=== PATIENT | male | born 1980 | race Caucasian/White ===

== ENCOUNTER 2018-06-15 11:59 | Emergency (ER) | payer BC ==
--- NOTE | 2018-06-15 13:04 | EDM.PDOC ---
ED HPI GENERAL MEDICAL PROBLEM - General Chief Complaint: Laceration Stated Complaint: FELL AND SPLIT LIP Time Seen by Provider: 06/15/18 12:30 Source of Information: Reports: Patient History Limitations: Reports: No Limitations - History of Present Illness INITIAL COMMENTS - FREE TEXT/NARRATIVE: Patient comes in the emergency department with complaint of a lip laceration. Patient states she was walking up the stairs and fell forward causing his tooth to go through the front of his lip on the right lateral aspect. He states that he was able to control the bleeding immediately but did see that it needed medical attention. Pt denies any head injuries including headache, dizziness, lightheadedness, blurred vision, chest pain, shortness of breath, or abnormal swelling. Patient denies losing any teeth or having any loose teeth from the incident. He states that the pain is localized to the right side of his lip. States it's worse when he is talking feels better when he is resting. He denies taking any pain medication and does not want anything for the discomfort. Onset: Sudden Quality: Reports: Throbbing Severity: Mild Improves with: Reports: None Worsens with: Reports: None Associated Symptoms: Reports: No Other Symptoms - Related Data Allergies Allergy/AdvReac Type Severity Reaction Status Date / Time latex Allergy Rash Verified 05/19/17 08:33 Past Medical History HEENT History: Reports: Otitis Media ED ROS GENERAL - Review of Systems Review Of Systems: See Below Constitutional: Reports: No Symptoms HEENT: Reports: No Symptoms Respiratory: Reports: No Symptoms Cardiovascular: Reports: No Symptoms Endocrine: Reports: No Symptoms GI/Abdominal: Reports: No Symptoms : Reports: No Symptoms Musculoskeletal: Reports: No Symptoms Skin: Reports: No Symptoms Neurological: Reports: No Symptoms Psychiatric: Reports: No Symptoms Hematologic/Lymphatic: Reports: No Symptoms Immunologic: Reports: No Symptoms ED EXAM, SKIN/RASH Exam: See Below Exam Limited By: No Limitations General Appearance: Alert, WD/WN, No Apparent Distress Throat/Mouth: Other (laceration to right upper lip. bleeding minimal. Deep tissue involvment ) Head: Atraumatic, Other Neck: Normal Inspection, Supple, Non-Tender Respiratory/Chest: No Respiratory Distress, No Accessory Muscle Use Back Exam: Normal Inspection, Full Range of Motion Extremities: Normal Inspection, Normal Range of Motion Neurological: Alert, Oriented Psychiatric: Normal Affect, Normal Mood Skin: Warm, Dry, Intact, Normal Color Location, Skin: Face Characteristics: Linear Associated features: Tenderness, Swelling ED SKIN PROCEDURES - Laceration/Wound Repair Right Upper Lateral Mouth Lac/Wound length In cm: 4 Appearance: Irregular, Clean Anesthetic Type: Local Local Anesthesia - Lidocaine (Xylocaine): 1% Plain Local Anesthetic Volume: 4cc Skin Prep: Saline Exploration/Debridement/Repair: Wound Explored, Explored to Base Closed with: Sutures # of Sutures: 6 Suture Type: Prolene, Simple, Other Suture Size: 4-0 # of Sutures: 3 Repaired with: Vicryl Sterile Dressing Applied: None Tetanus Status Addressed: Other (had it completed last year) Complications: No Course - Orders/Labs/Meds Orders: Active Orders 24 hr Category Date Time Status Lidocaine 1% [Xylocaine-MPF 1%] Med 06/15/18 12:58 Once 5 ml INJECT ONETIME ONE Departure - Departure Time of Disposition: 13:25 Disposition: Home, Self-Care 01 Condition: Good Clinical Impression: Laceration - Discharge Information *PRESCRIPTION DRUG MONITORING PROGRAM REVIEWED*: Not Applicable *COPY OF PRESCRIPTION DRUG MONITORING REPORT IN PATIENT JESSICA: Not Applicable Instructions: Stitches, [place], or Adhesive Wound Closure, [id number], Laceration Care, Adult, [id number] Referrals: PCP,None [Primary Care Provider] - Additional Instructions: 1. rest 2. increase water intake 3. Keep the area clean and dry 4. You have 3 dissolvable sutures on the inside her mouth those will follow out in 4-5 days 5. The 3 sutures on the outside of her mouth will need to be removed in the clinic in 10 days 6. Try to avoid smoking, items spicy, or extreme hot or cold for the next 24-48 hours 7. Also try to avoid irritating that area of the mouth for the sutures will come out sooner with more irritation. 8. You can take any Tylenol or ibuprofen [id number] for any pain or discomfort 9. Call with any questions or concerns 10. Follow-up in the clinic in 10 days to have external sutures removed - My Orders Last 24 Hours: My Active Orders 06/15/18 12:58 Lidocaine 1% [Xylocaine-MPF 1%] 5 ml INJECT ONETIME ONE - Assessment/Plan Last 24 Hours: My Active Orders 06/15/18 12:58 Lidocaine 1% [Xylocaine-MPF 1%] 5 ml INJECT ONETIME ONE Assessment:: 1. lip laceration Plan: 1. wound cleansing 2. Wound repair with sutures 3. Information provided to the pt regarding suture care, follow up, OTC pain management, and activity and diet 4. All questions and concerns addressed prior to discharge
== END 2018-06-15 13:40 | disposition home or self-care (01) ==
LOC: VM.ED 11:59
DX: S01.511A Laceration without foreign body of lip, initial encounter (principal); W10.9XXA Fall (on) (from) unspecified stairs and steps, initial encounter; Z91.040 Latex allergy status
CPT/HCPCS: 12013; 99282; J2001

== ENCOUNTER 2023-05-04 15:44 | Emergency (ER) | payer OTHER ==
[2023-05-04] MEDS ORDERED: Naloxone 0.4 MG/ML SDV IVPUSH PRN (16:41)
[2023-05-04] MEDS: HYDROmorphone 1 MG/ML Syringe SUBCUT ONE (16:55)
[2023-05-04] MEDS: Lidocaine 1% 10 ML MDV INJECT ONE (17:56)
[2023-05-04] MEDS: Take Home: Acetaminophen/HYDROcodone 325-5 MG, 5 Tab Pack PO ONE (18:00)
[2023-05-04] MEDS: Take Home: Amoxicillin/Clavulanate K 875-125 MG Tab, 2 Tab Pack PO ONE (18:00)
[2023-05-04] MEDS: Diphtheria,Pertussis(Acell),Tetanus Vaccine 0.5 ML Syringe IM ONE (18:00)
== END 2023-05-04 18:11 | disposition home or self-care (01) ==
LOC: VM.ED 15:44
DX: S60.552A Superficial foreign body of left hand, initial encounter (principal); W29.4XXA Contact with nail gun, initial encounter
CPT/HCPCS: 73130-LT; 90471; 90715; 96372; 99283-25; A9270-GY; J1170; J3490